=== PATIENT | female | born 1965 | race Caucasian/White ===

== ENCOUNTER → 2017-04-08 | Outpatient (CLI) | payer OTHER, BC | LOC: RAD 04:05 | DX: Z12.31 Encounter for screening mammogram for malignant neoplasm of breast (principal) ==

== ENCOUNTER → 2017-10-29 | Outpatient (CLI) | payer OTHER, BC ==
[~2017-10-29] VITALS: Ht 165.1 cm; Wt 86.2 kg
[~2017-10-29] MED LIST: ALEVE220 MG PO; CLARITIN10 MG PO; LEVOTHYROXINE100 MCG PO; LOW-OGESTREL1 EACH PO; PAXIL10 MG PO
--- NOTE | ~2017-10-29 | P ---
[facility] [place] [address] PROCEDURE REPORT Name: DARREN KARIMI Room #: REG Herberth Mott#: [id number] Admission: 10/29/17 Attend Phys: Mark Fernandez Discharge: Date of : 67 Report #: [id number] THIS REPORT FOR: //name// CC: Mark Tucker MD DATE OF SERVICE: 10/29/2017 PROCEDURE PERFORMED: Colonoscopy with polypectomy. HISTORY OF PRESENT ILLNESS: The patient is a 52-year-old female who presents today for routine screening colonoscopy. She denies any symptoms. No previous history of endoscopy, no family history of colon cancer. DESCRIPTION OF PROCEDURE: The risks and benefits of the procedure were explained to the patient and her mother. Those risks including but not limited to bleeding, perforation, the risk of sedation. They understood these risks and gave informed consent. Sedation was given using propofol per Anesthesia. Next, a digital rectal exam was initially performed, which was normal. Next, using a standard Fujinon colonoscope, the scope was placed in the patient's anus and advanced under direct vision to the cecum. The overall prep was excellent. The cecum and ileocecal valve were normal in appearance. Ascending, transverse, descending colon were normal. A few scattered diverticula were noted in the sigmoid colon, otherwise normal. In the rectum, an 8 mm sessile polyp was noted. This was removed by snare cautery, otherwise normal. On retroflexion, no abnormalities were noted. The scope was then withdrawn, and the procedure terminated. The patient tolerated the procedure well. IMPRESSION: 1. Rectal polyp. 2. Sigmoid diverticulosis. 3. Otherwise, normal colonoscopy. RECOMMENDATIONS: 1. Await biopsy results. 2. Repeat colonoscopy in 5 years. Thank you for allowing me to participate in her care. <ELECTRONICALLY SIGNED> By: Mark Ayon MD 11/03/17 0814 [id number] Mark Ayon MD /nt
== END ==
LOC: GI 07:20
DX: Z12.11 Encounter for screening for malignant neoplasm of colon (principal); D12.8 Benign neoplasm of rectum; K57.30 Diverticulosis of large intestine without perforation or abscess without bleeding; F32.9 Major depressive disorder, single episode, unspecified; F41.9 Anxiety disorder, unspecified; E03.9 Hypothyroidism, unspecified; Z98.890 Other specified postprocedural states; Z86.2 Personal history of diseases of the blood and blood-forming organs and certain disorders involving the immune mechanism; Z79.899 Other long term (current) drug therapy
CPT/HCPCS: 62110; 62900

== ENCOUNTER → 2018-05-05 | Outpatient (CLI) | payer OTHER, BC | LOC: RAD 04:25 | DX: Z12.31 Encounter for screening mammogram for malignant neoplasm of breast (principal) ==

== ENCOUNTER → 2019-06-09 | Outpatient (CLI) | payer OTHER, BC | LOC: RAD 14:43 | DX: Z12.31 Encounter for screening mammogram for malignant neoplasm of breast (principal) ==

== ENCOUNTER → 2020-09-27 | Outpatient (CLI) | payer OTHER, BC | LOC: BC 10:50 | PROVIDERS: ATTEND Internal Medicine | DX: Z12.31 Encounter for screening mammogram for malignant neoplasm of breast (principal) ==